=== PATIENT | male | born 1985 | race Caucasian/White ===

== ENCOUNTER 2022-07-29 17:38 | Emergency (ER) | payer SELFPAY ==
[~2022-07-29] VITALS: Ht 170.2 cm; Wt 91.0 kg
[2022-07-29] MEDS ORDERED: ACETAMINOPHEN 325MG TABLET PO ONE (18:30)
[2022-07-29] MEDS ORDERED: KETOROLAC 60MG/2ML VIAL IM ONE (18:30)
[2022-07-29] MEDS ORDERED: IBUP-2028 MT (22:09)
[2022-07-29] MEDS ORDERED: ACET-2708 MT (22:09)
[2022-07-29] MEDS ORDERED: KETOROLAC 60MG/2ML VIAL IM NR (23:30)
[2022-07-29] MEDS ORDERED: ACETAMINOPHEN 325MG TABLET PO NR (23:30)
[2022-07-29 23:43] VITALS: BP 126/87
== END 2022-07-30 00:25 | disposition home or self-care (01) ==
LOC: ER 17:38
DX: M79.10 Myalgia, unspecified site (principal); M25.551 Pain in right hip
CPT/HCPCS: 71045; 72125; 73030; 73080; 73502; 96372; 99291; J1885; Z7610